=== PATIENT | male | born 1970 | race Caucasian/White ===

== ENCOUNTER 2018-05-28 15:45 | Emergency (ER) | payer OTHER ==
[~2018-05-28] VITALS: Ht 182.9 cm; Wt 102.0 kg
[2018-05-28 15:50] VITALS: BP 160/74
== END 2018-05-28 17:11 | disposition home or self-care (01) ==
LOC: ED 16:20
DX: M54.42 Lumbago with sciatica, left side (principal)
CPT/HCPCS: 99283